=== PATIENT | male | born 1935 | race African-American/Black ===

== ENCOUNTER 2017-08-06 11:14 | Emergency (ER) | payer MEDICARE ==
[~2017-08-06 11:14] MED LIST: CARV12.52 PO; ISOS30TA3 PO; OMEP20TA93 PO; SIMV80TA PO
[2017-08-06 11:24] VITALS: BP 144/69; PULSE 62; RESP 18; TEMP 98; O2SAT 97
[2017-08-06] MEDS ORDERED: SODIUM CHLORIDE 0.9% FLUSH 10 ML FLUSH IVF PRN (11:30)
[2017-08-06 11:51] VITALS: O2SAT 96
--- NOTE | 2017-08-06 11:56 | PD ---
HPI Chief Complaint: Neuro Symptoms/ Deficits Time Seen by Provider: 11:29 Travel History International Travel<30 days: No Contact w/Intl Traveler<30days: No Traveled to known affect area: No History of Present Illness HPI 52-year-old male that presents to the ED for evaluation of possible strokelike symptoms. Patient apparently was on his way to the [place] [facility] for her regular checkup and had an episode of what appears to be expressive aphasia as well as weakness to one of his extremities. It is unclear as to which extremities he was was per family they were saying he was the right patient was saying the left. Patient has a history of dementia and history is limited from him. He denies any symptoms. Per patient he is fine. He does appear to be alert and oriented and has currently no neurological deficits. Unclear as to how long the event lasted but from what I can gather from the history last the less than an hour. Patient is now back to baseline and per ambulance the found no neurological deficits. Patient complains of noting to me. He does have issues with orientation to time but otherwise he appears to run suspicious of properly and appears to be at baseline. No family at bedside on my initial evaluation but patient is able to answer some basic questions appropriately. He denies any pain. PFSH Past Medical History Asthma: No Autoimmune Disease: No Blood Disorders: No Anxiety: No Depression: Yes Heart Rhythm Problems: No Cancer: No Cardiovascular Problems: Yes High Cholesterol: Yes Chest Pain: No Congestive Heart Failure: No COPD: No Cerebrovascular Accident: No Diabetes: Yes Patient Takes Glucophage: No Endocrine: Yes Gastrointestinal Disorders: Yes GERD: Yes Genitourinary: No Headaches: No Hepatitis: No Hiatal Hernia: No Hypertension: Yes Immune Disorder: No Kidney Stones: No Musculoskeletal: No Neurologic: Yes Psychiatric: Yes Reproductive: No Respiratory: No Migraines: No Myocardial Infarction: No Renal Failure: No Seizures: No Sleep Apnea: No Thyroid Disease: No Ulcer: No ?: Not Past Surgical History Abdominal Surgery: No Appendectomy: No Cardiac Surgery: No Cholecystectomy: No Ear Surgery: No Endocrine Surgery: No Eye Surgery: No Genitourinary Surgery: No Gynecologic Surgery: No Oral Surgery: No Pacemaker: No Thoracic Surgery: No Other Surgery: Yes (R LEG VASCULAR SURG) Social History Alcohol Use: Yes Tobacco Use: No Substance Use: No Allergies-Medications (Allergen,Severity, Reaction): Coded Allergies: levofloxacin (Unverified Allergy, Severe, ITCH, HIVES, 08/06/17) Sulfa (Sulfonamide Antibiotics) (Unverified Allergy, Unknown, 08/06/17) Reported Meds & Prescriptions Reported Meds & Active Scripts Active Reported Omeprazole 20 Mg Tab 20 Mg PO DAILY Simvastatin 80 Mg Tab 80 Mg PO DAILY Isosorbide Mononitrate ER (Isosorbide Mononitrate) 30 Mg Kae 30 Mg PO DAILY Carvedilol 12.5 Mg Tab 0.5 Tab PO BID Review of Systems ROS Limitations: Poor Historian Except as stated in HPI: all other systems reviewed are Neg Physical Exam Exam Limitations: Poor Historian Narrative GENERAL: SKIN: Warm and dry. HEAD: Atraumatic. Normocephalic. EYES: Pupils equal and round 4 mm reactive to light and accommodation. No scleral icterus. No injection or drainage. ENT: No nasal bleeding or discharge. Mucous membranes pink and moist. Tongue is midline. No uvula deviation. NECK: Trachea midline. No JVD. CARDIOVASCULAR: Regular rate and rhythm. No murmurs, S3, S4. RESPIRATORY: No accessory muscle use. Clear to auscultation. Breath sounds equal bilaterally. GASTROINTESTINAL: Abdomen soft, non-tender, nondistended. Hepatic and splenic margins not palpable. MUSCULOSKELETAL: Extremities without clubbing, cyanosis, or edema. No obvious deformities. Full range of motion of the upper and lower extremities bilaterally. 2+ pulses bilaterally. Patient does have a prosthesis to the right leg NEUROLOGICAL: Awake and alert and oriented to place and person, able to tell me day of the week, but not month. No obvious cranial nerve deficits. Motor grossly within normal limits. Five out of 5 muscle strength in the arms and legs. Normal speech. Romberg test negative. Pronator test negative. PSYCHIATRIC: Appropriate mood and affect; insight and judgment normal. Data Data Last Documented VS Vital Signs Date Time Temp Pulse Resp B/P (MAP) Pulse Ox O2 Delivery O2 Flow Rate FiO2 08/06/17 11:24 98.0 62 18 144/69 (94) 97 Orders Orders Electrocardiogram (08/06/17 11:29) Prothrombin Time / Inr (Pt) (08/06/17 11:29) Act Partial Throm Time (Ptt) (08/06/17 11:29) Complete Blood Count With Diff (08/06/17 11:29) Comprehensive Metabolic Panel (08/06/17 11:29) Drug Screen, Random Urine (08/06/17 11:29) Troponin I (08/06/17 11:29) Urinalysis - C+S If Indicated (08/06/17 11:29) Ct Brain W/O Iv Contrast(Rout) (08/06/17 11:29) Chest, Single Ap (08/06/17 11:29) Ecg Monitoring (08/06/17 11:29) Iv Access Insert/Monitor (08/06/17 11:29) Oximetry (08/06/17 11:29) Sodium Chloride 0.9% Flush (Ns Flush) (08/06/17 11:30) Bedside Glucose JAMA.CSUGAR (08/06/17 11:29) MDM Medical Decision Making Medical Screen Exam Complete: Yes Emergency Medical Condition: Yes Medical Record Reviewed: Yes Differential Diagnosis TIA versus CVA versus neurological deficits versus dementia versus ACS Narrative Course 82-year-old male that presents to the ED for evaluation of possible neurological deficits. Patient was properly examined and was found to have signs and symptoms which appear to consistent with TIA event. Patient is completely back to baseline at this time. Patient has no neurological deficits on physical exam. Patient reports is not good historian there is no family at bedside at this time as patient was evaluated initially in the ambulance call. Case was discussed immediately with my attending Dr. Suarez who agrees the patient can be worked up for TIA and will be moved to a room where patient can be monitored and further evaluated. Case was signed out to my attending pending disposition and treatment plan. Sergo Bruno Aug 06, 2017 11:56
[2017-08-06 12:04] LABS: AUTOMATED NEUTROPHIL # 2.1 TH/MM3 (1.8-7.7); BASOPHIL # 0.1 TH/MM3 (0-0.2); BASOPHIL % 1.7 % (0.0-2.0); EOSINOPHIL # 0.2 TH/MM3 (0-0.4); HEMOGLOBIN 13.2 GM/DL (13.0-17.0); LYMPH % 41.8 % (9.0-44.0); LYMPHOCYTE # 2.1 TH/MM3 (1.0-4.8); MEAN CORPUSCULAR HEMOGLOBIN 34.1 PG (27.0-34.0); MEAN CORPUSCULAR HGB CONC 33.8 % (32.0-36.0); MEAN PLATELET VOLUME 8.1 FL (7.0-11.0); MONO % 10.4 % (0.0-8.0); MONOCYTE # 0.5 TH/MM3 (0-0.9); NEUT % 43.1 % (16.0-70.0); PLATELET COUNT 143 TH/MM3 (150-450); RED BLOOD COUNT 3.86 MIL/MM3 (4.50-5.90); RED CELL DISTRIBUTION WIDTH 14.2 % (11.6-17.2); WHITE BLOOD COUNT 4.9 TH/MM3 (4.0-11.0)
--- NOTE | 2017-08-06 12:06 | RADRPT ---
EXAM DATE/TIME: 08/06/2017 11:52 [facility] COMPARISON: No previous studies available for comparison. INDICATIONS : Resolved episode of difficulty speaking RADIATION DOSE: 40.41 CTDIvol (mGy) MEDICAL HISTORY : Cerebrovascular disease. Cardiovascular disease Hypertension.Diabetes SURGICAL HISTORY : None. ENCOUNTER: Initial ACUITY: 1 day PAIN SCALE: 0/10 LOCATION: cranial TECHNIQUE: Multiple contiguous axial images were obtained of the head. Using automated exposure control and adj ustment of the mA and/or kV according to patient size, radiation dose was kept as low as reasonably a chievable to obtain optimal diagnostic quality images. DICOM format image data is available electro nically for review and comparison. FINDINGS: CEREBRUM: The ventricles are normal for age. No evidence of midline shift, mass lesion, hemorrhage or acute in farction. No extra-axial fluid collections are seen. POSTERIOR FOSSA: The cerebellum and brainstem are intact. The 4th ventricle is midline. The cerebellopontine angle i s unremarkable. EXTRACRANIAL: The visualized portion of the orbits is intact. SKULL: The calvaria is intact. No evidence of skull fracture. CONCLUSION: Negative for acute process. Fabian Vaughn MD FACR on August 06, 2017 at 12:03 Board Certified Radiologist. This report was verified electronically.
--- NOTE | 2017-08-06 12:09 | RADRPT ---
EXAM DATE/TIME: 08/06/2017 11:37 [facility] COMPARISON: No previous studies available for comparison. INDICATIONS : Confusion, shortness of breath, wheezing. MEDICAL HISTORY : Myocardial infarction. SURGICAL HISTORY : CABG. ENCOUNTER: Initial ACUITY: 1 day PAIN SCORE: 0/10 LOCATION: Bilateral chest FINDINGS: A single view of the chest demonstrates the lungs to be symmetrically aerated without evidence of mas s, infiltrate or effusion. Minimal basilar atelectasis. Previous sternotomy. The cardiomediastinal c ontours are unremarkable. Osseous structures are intact. CONCLUSION: 1. Minimal basal atelectasis. No consolidation or effusion. Andrew Douglas MD on August 06, 2017 at 12:05 Board Certified Radiologist. This report was verified electronically.
--- NOTE | 2017-08-06 12:23 | PD ---
Physical Exam Date Seen by Provider: Aug 06, 2017 Time Seen by Provider: 12:21 Narrative 82-year-old male previously seen by Sergo Bruno PA-C, in the ambulance [facility], for apparent neurological changes including dysphagia and right- sided weakness while driving to the [place] [facility]. Patient states all the symptoms have resolved upon exam by Sergo Bruno PA-C. CT scan, chest x-ray, and labs are ordered at that time. Please see Sergo Bruno PA-C previous note. Patient was transferred to [facility] for further medical either and disposition. Data Data Last Documented VS Vital Signs Date Time Temp Pulse Resp B/P (MAP) Pulse Ox O2 Delivery O2 Flow Rate FiO2 08/06/17 12:37 97.8 64 20 192/90 (124) 98 Room Air Orders Orders Electrocardiogram (08/06/17 11:29) Prothrombin Time / Inr (Pt) (08/06/17 11:29) Act Partial Throm Time (Ptt) (08/06/17 11:29) Complete Blood Count With Diff (08/06/17 11:29) Comprehensive Metabolic Panel (08/06/17 11:29) Drug Screen, Random Urine (08/06/17 11:29) Troponin I (08/06/17 11:29) Urinalysis - C+S If Indicated (08/06/17 11:29) Ct Brain W/O Iv Contrast(Rout) (08/06/17 11:29) Chest, Single Ap (08/06/17 11:29) Ecg Monitoring (08/06/17 11:29) Iv Access Insert/Monitor (08/06/17 11:29) Oximetry (08/06/17 11:29) Sodium Chloride 0.9% Flush (Ns Flush) (08/06/17 11:30) Bedside Glucose JAMA.CSUGAR (08/06/17 11:29) Labs Laboratory Tests Test 08/06/17 11:47 White Blood Count 4.9 TH/MM3 Red Blood Count 3.86 MIL/MM3 Hemoglobin 13.2 GM/DL Hematocrit 39.0 % Mean Corpuscular Volume 101.0 FL Mean Corpuscular Hemoglobin 34.1 PG Mean Corpuscular Hemoglobin Concent 33.8 % Red Cell Distribution Width 14.2 % Platelet Count 143 TH/MM3 Mean Platelet Volume 8.1 FL Neutrophils (%) (Auto) 43.1 % Lymphocytes (%) (Auto) 41.8 % Monocytes (%) (Auto) 10.4 % Eosinophils (%) (Auto) 3.0 % Basophils (%) (Auto) 1.7 % Neutrophils # (Auto) 2.1 TH/MM3 Lymphocytes # (Auto) 2.1 TH/MM3 Monocytes # (Auto) 0.5 TH/MM3 Eosinophils # (Auto) 0.2 TH/MM3 Basophils # (Auto) 0.1 TH/MM3 CBC Comment DIFF FINAL Differential Comment Blood Urea Nitrogen 13 MG/DL Creatinine 1.39 MG/DL Random Glucose 71 MG/DL Total Protein 8.0 GM/DL Albumin 3.5 GM/DL Calcium Level 8.7 MG/DL Alkaline Phosphatase 111 U/L Aspartate Amino Transf (AST/SGOT) 28 U/L Alanine Aminotransferase (ALT/SGPT) 19 U/L Total Bilirubin 0.6 MG/DL Sodium Level 138 MEQ/L Potassium Level 4.3 MEQ/L Chloride Level 103 MEQ/L Carbon Dioxide Level 25.8 MEQ/L Anion Gap 9 MEQ/L Estimat Glomerular Filtration Rate 59 ML/MIN Troponin I LESS THAN 0.02 NG/ML [facility] Medical Record Reviewed: Yes Supervised Visit with YINA: Yes Differential Diagnosis CVA. TIA. Low blood sugar. Neurological changes. Narrative Course Patient remains medically stable at time of exam entirely pod. Labs were reviewed, and essentially normal EKG shows sinus rhythm with first degree AV block this is unchanged from previous Chest x-ray is unremarkable. CT scan shows no acute process per radiologist. Findings discussed with the patient, and recommended 24-hour observation admission was discussed. The patient and both concur that he would like to leave AMA, and follow PA. Diagnosis Primary Impression: TIA (transient ischemic attack) Qualified Codes: G45.9 - Transient cerebral ischemic attack, unspecified Referrals: [facility] Patient Instructions: General Instructions, Transient Ischemic Attack (ED) Additional Instruction: Labs were reviewed, and essentially normal EKG shows sinus rhythm with first degree AV block this is unchanged from previous Chest x-ray is unremarkable. CT scan shows no acute process per radiologist. Findings discussed with the patient, and recommended 24-hour observation admission was discussed. The patient and both concur that he would like to leave AMA, and follow PA. Med/Other Pt SpecificInfo: No Meds Exist/No RX given Disposition: 07 AGAINST MEDICAL ADVICE Condition: Stable Gianluca Black Aug 06, 2017 12:23
[2017-08-06 12:27] LABS: ALT (GPT) 19 U/L (12-78)
[2017-08-06 12:30] LABS: ALKALINE PHOSPHATASE 111 U/L (45-117); TOTAL BILIRUBIN ADULT 0.6 MG/DL (0.2-1.0); TROPONIN I LESS THAN 0.02 NG/ML (0.02-0.05)
[2017-08-06 12:31] LABS: ALBUMIN 3.5 GM/DL (3.4-5.0); AST (GOT) 28 U/L (15-37); BICARBONATE 25.8 MEQ/L (21.0-32.0); BLOOD UREA NITROGEN 13 MG/DL (7-18); CALCIUM 8.7 MG/DL (8.5-10.1); CHLORIDE 103 MEQ/L (98-107); CREATININE 1.39 MG/DL (0.60-1.30); GLOMERULAR FILTRATION RATE 59 ML/MIN (>89); GLUCOSE,RANDOM 71 MG/DL (74-106); SODIUM (NA) 138 MEQ/L (136-145)
[2017-08-06 12:37] VITALS: BP_SYST 128; BP_SYST 192; BP_DIAS 90; PULSE 64; RESP 20; TEMP 97.8; O2SAT 98
--- NOTE | 2017-08-07 19:17 | EKG ---
Date Performed: 08/06/2017 Time Performed: 11:46:10 PTAGE: 82 years EKG: Sinus rhythm WITH FIRST DEGREE AV BLOCK POSSIBLE LEFT ATRIAL ENLARGEMENT MARKED LEFT AXIS DEVIATION POSSIBLE LEFT VENTRICULAR HYPERTROPHY ABNORMAL ECG PREVIOUS TRACING : 01/09/2008 22.14 SINCE PRIOR TRACING THE EXTENSIVE ST SEGMENT CHANGES HAVE R ESOLVED. DOCTOR: Dalila Bowens Interpretating Date/Time 08/07/2017 19:16:11
== END 2017-08-06 13:34 | disposition left against medical advice (07) ==
LOC: NEPC 11:14
DX: G45.9 Transient cerebral ischemic attack, unspecified (principal); R94.31 Abnormal electrocardiogram [ECG] [EKG]; F03.90 Unspecified dementia, unspecified severity, without behavioral disturbance, psychotic disturbance, mood disturbance, and anxiety; I10 Essential (primary) hypertension; E11.9 Type 2 diabetes mellitus without complications
CPT/HCPCS: 70450; 71045; 80053; 84484; 85025; 85610; 85730; 93005; 99285